=== PATIENT | male | born 1990 | race African-American/Black ===

== ENCOUNTER 2017-01-31 09:41 | Emergency (ER) | payer MEDICAID ==
[~2017-01-31] VITALS: Ht 185.4 cm; Wt 82.0 kg
[2017-01-31 09:45] VITALS: Ht 185.4 cm; Wt 82.0 kg
[2017-01-31] MEDS ORDERED: IBUP800T25 PO (11:55)
--- NOTE | 2017-01-31 11:55 | ERD ---
ER Documentation Chief Complaint Chief Complaint LOWER BACK PAIN RADIATES UP TO NECK X3 WEEKS HPI 26-year-old male presents emergency department for lower back pain that radiates up to his neck for 3 weeks. Stated that there is been working a lot of shifts at the [employer] and [employer]. Also asking for a work note. Denies headache, dizziness, blurred vision, changes in vision, neck pain, throat pain, difficulty swallowing, shoulder pain, chest pain, back pain, abdominal pain no nausea, vomiting, constipation, diarrhea, loss of bowel bladder control, hematuria, recent long travel, recent exposure to any illness, fever, chills, head trauma, trauma, injury, falls, numbness or tingling sensation, difficulty walking. No known drug allergies. No past medical history. No surgeries. Does not take any prescription medication at home. Social: Works at [employer], and [employer]. Physical exam: ROS All systems reviewed and are negative except as per history of present illness. Medications Home Meds Active Scripts Cyclobenzaprine Hcl* (Cyclobenzaprine Hcl*) 10 Mg Tablet, 10 MG PO TID Y for muscle spasms, #15 TAB Prov:PASILABANDARINELAR F 01/31/17 Ibuprofen* (Motrin*) 800 Mg Tab, 800 MG PO Q8 Y for PAIN AND OR ELEVATED TEMP, # 30 TAB Prov:GENOVEVAILABANDARINELAR F 01/31/17 Allergies Allergies: Coded Allergies: No Known Allergy (Unverified , 01/31/17) PMhx/Soc Medical and Surgical Hx: pt denies Medical Hx, pt denies Surgical Hx Hx Alcohol Use: No Hx Substance Use: No Hx Tobacco Use: No Smoking Status: Never smoker Physical Exam Vitals Vital Signs Date Time Temp Pulse Resp B/P Pulse Ox O2 Delivery O2 Flow Rate FiO2 01/31/17 09:45 97.2 74 16 129/71 98 Physical Exam Const: [] Head: Atraumatic Eyes: Normal Conjunctiva ENT: Normal External Ears, Nose and Mouth. No pain on eye movement. Neck: Full range of motion..~ No meningismus. Negative Brudzinski sign. Negative on Kernig sign. No signs of meningeal irritation. Resp: Clear to auscultation bilaterally Cardio: Regular rate and rhythm, no murmurs Abd: Soft, non tender, non distended. Normal bowel sounds Skin: No petechiae or rashes Back: No midline or flank tenderness. Supraspinatus tenderness to the right upper left upper back. C-spine/T-spine/L-spine are in midline and has good and full range of motion and has no tenderness/bulging/discoloration/point of tenderness. Negative saddle anesthesia. Ext: No cyanosis, or edema Neur: Awake and alert Psych: Normal Mood and Affect Procedures/MDM 26-year-old male presents emergency department for lower back pain that radiates up to his neck for 3 weeks. Stated that there is been working a lot of shifts at the [employer] and [employer]. Also asking for a work note. Denies headache, dizziness, blurred vision, changes in vision, neck pain, throat pain, difficulty swallowing, shoulder pain, chest pain, back pain, abdominal pain no nausea, vomiting, constipation, diarrhea, loss of bowel bladder control, hematuria, recent long travel, recent exposure to any illness, fever, chills, head trauma, trauma, injury, falls, numbness or tingling sensation, difficulty walking. No known drug allergies. No past medical history. No surgeries. Does not take any prescription medication at home. Social: Works at [employer], and [employer]. Physical exam: Physical exam: No pain on eye movement. Neck has Full range of motion..~ No meningismus. Negative Brudzinski sign. Negative on Kernig sign. No signs of meningeal irritation.Supraspinatus tenderness to the right upper left upper back. C-spine/T-spine/L-spine are in midline and has good and full range of motion and has no tenderness/bulging/discoloration/point of tenderness. Negative saddle anesthesia. Patient is refusing any diagnostic tests stating that he is just having a muscle spasms. Patient agreed with the plan of care, follow-up care. Differential diagnosis: Nephrolithiasis versus back strain versus back sprain versus sciatica versus musculoskeletal spasms Final diagnosis: Musculoskeletal spasms Prescription: Flexeril. Motrin. No neurological deficits. Romberg test is negative. No saddle anesthesia. No musculoskeletal deficits. Follow-up with primary care physician the next 24-48 hours. Come back to emergency department for any new symptoms or any worsening of symptoms. All questions and concerns are answered. Patient verbalized understanding and agreed with the plan of care. Hemodynamically stable on discharge. Departure Diagnosis: Primary Impression: Muscle spasm Condition: Stable Additional Instructions: Follow-up with primary care physician the next 24-48 hours. Come back to emergency department for any new symptoms or any worsening of symptoms. All questions and concerns are answered. Patient verbalized understanding and agreed with the plan of care. AMANDA ANTONIO Jan 31, 2017 11:55
[2017-01-31] MEDS ORDERED: CYCL-319 PO (11:56)
== END 2017-01-31 12:32 | disposition home or self-care (01) ==
LOC: FTE 09:41
DX: M62.830 Muscle spasm of back (principal)
CPT/HCPCS: 99283